=== PATIENT | female | born 1965 | race African-American/Black ===

== ENCOUNTER → 2017-08-03 | Outpatient (CLI) | payer OTHER | LOC: M RAD 08:23 | DX: Z12.31 Encounter for screening mammogram for malignant neoplasm of breast (principal) | CPT/HCPCS: 77067 ==

== ENCOUNTER → 2018-08-10 | Outpatient (CLI) | payer OTHER ==
--- NOTE | 2018-08-10 14:01 | REPMRS ---
Patient History The patient states she had a clinical breast exam in July 2018. Family history of breast cancer at age 62 in mother, prostate cancer at age 59 in father, ovarian cancer at age 18 in sister, endometrial cancer at age 82 in maternal grandmother. Digital Mammo Screening Bilat: August 10, 2018 - Exam #: [id number] Bilateral CC and MLO view(s) were taken. Technologist: Vani Blake, Technologist Prior study comparison: August 03, 2017, bilateral digital mammo screening bilat performed at [facility]. March 17, 2016, bilateral digital mammo screening bilat performed at [facility]. FINDINGS: The breast tissue is heterogeneously dense. This may lower the sensitivity of mammography. There has been no change in the appearance of the mammogram from the prior studies. There is a moderate amount of residual fibroglandular tissue which is fairly symmetric. There is no interval development of dominant mass, areas of architectural distortion, or clustered microcalcification typical of malignancy. Assessment: BI-RADS/ACR category 1 mammogram. Negative Mammogram. Recommendation Routine screening mammogram in 1 year (for women over age 40). This mammogram was interpreted with the aid of an FDA-approved computer-aided dectection system. Electronically Signed By: Tal Wolfe MD 08/10/18 [id number]
== END ==
LOC: M RAD 13:09
PROVIDERS: ATTEND Physician Assistant
DX: Z12.31 Encounter for screening mammogram for malignant neoplasm of breast (principal)